=== PATIENT | female | born 1960 | race Caucasian/White ===

== ENCOUNTER 2016-12-01 11:22 | Emergency (ER) | payer BC ==
[2016-12-01] MEDS ORDERED: Metoprolol Tartrate IV* 1 MG/ML 5 ML VIAL IV ONE (11:33)
[2016-12-01] MEDS ORDERED: NS 0.9% 1000 ML* 2,000 ML IV ONE (11:33)
[2016-12-01 11:57] LABS: Hematocrit 40 % (35-47); Mean Corpuscular HGB Conc 35 g/dl (31-36); Mean Corpuscular Hemoglobin 33 pg (27-31); Mean Corpuscular Volume 95 fL (80-97); Mean Platelet Volume 9 um3 (7.4-10.4); Red Blood Count 4.25 10^6/ul (4.0-5.4); Red Cell Distribution Width 13 % (10.5-15); White Blood Count 5.3 10^3/ul (3.5-10.8)
[2016-12-01 12:13] LABS: ALT 33 U/L (7-52); Albumin 4.6 g/dL (3.2-5.2); Alkaline Phosphatase 96 U/L (34-104); BUN/Creatinine Ratio 12.9 (8-20); Blood Urea Nitrogen 13 mg/dL (6-24); CO2 Carbon Dioxide 21 mmol/L (22-32); Calcium 9.3 mg/dL (8.6-10.3); Chloride 103 mmol/L (101-111); Creatine Kinase 110 U/L (10-223); EGFR African American 73.5 (>60); EGFR Non-African American 57.1 (>60); Globulin 2.8 g/dL (2-4); Glucose 161 mg/dL (70-100); Lipase 50 U/L (11.0-82.0); Sodium 136 mmol/L (133-145); Total Protein 7.4 g/dL (6.4-8.9)
--- NOTE | 2016-12-01 12:30 | RAD ---
HISTORY: Tachycardia COMPARISONS: None VIEWS:1: Single frontal portable view of the chest at 12:06 PM FINDINGS: LINES AND TUBES: None. CARDIOMEDIASTINAL SILHOUETTE: The cardiomediastinal silhouette is normal for portable technique. PLEURA: The costophrenic angles are sharp. No pleural abnormalities are noted. LUNG PARENCHYMA: The lungs are clear. ABDOMEN: The upper abdomen is clear. There is no subphrenic gas. BONES AND SOFT TISSUES: No bone or soft tissue abnormalities are noted. IMPRESSION: NO ACTIVE CARDIOPULMONARY DISEASE.
[2016-12-01 12:38] LABS: Anion Gap 12 mmol/L (2-11)
[2016-12-01 12:51] LABS: TSH (Thyroid Stimulating Horm) 3.97 mcIU/mL (0.34-5.60)
[2016-12-01] MEDS ORDERED: Metoprolol Succinate XL TAB* 25 MG PO ONE (13:55)
[2016-12-01] MEDS ORDERED: Potassium Chlor TAB* 20 MEQ TAB.ER PO ONE (13:56)
[2016-12-01] MEDS ORDERED: Perflutren Lipid Microsphere* 3 ML VIAL ONE (14:31)
--- NOTE | 2016-12-01 15:49 | ECHO ---
Patient: ZULEIKA QUILES [facility] Rec#: [id number] : 1960 Date: 12/01/2016 Age: 56y Height: 180.34 cm / 71.0 in Weight: 104.33 kg / 229.9 lbs Sex: F BSA: 2.24 Room#: ED 18 Admit Date#: 12/01/2016 Type: Outpatient Referring: Nixon Erwin MD Reading: Jorge L Flores MD Inspector Quality Assurance: Sharlene Paniagua RDCS,RDMS CC: Devon Wright MD Transthoracic Echocardiogram Indication: Abnormal EKG, SVT BP: 124/68 HR: 67 Rhythm: NSR with PVCs Findings History: Previously healthy Technical Comments: The study quality is fair. Completed 1509 The study is technically limited due to poor apical windows. Left Ventricle: The left ventricular chamber size is normal. There is no left ventricular hypertrophy. The estimated ejection fraction is 55-60%. closer to 55%. There is no consistent Doppler evidence of clinically significant diastolic dysfunction. Left Atrium: The left atrium is mildly dilated. Right Ventricle: The right ventricular chamber size and systolic function are within normal limits. Right Atrium: The right atrium is slightly dilated. Aortic Valve: The aortic valve is trileaflet. There is no evidence of aortic valve thickening. Systolic excursion of the aortic valve is normal. There is no evidence of aortic regurgitation. There is no evidence of aortic stenosis. Mitral Valve: The mitral valve leaflets appear normal. There is a trace of mitral regurgitation. There is no evidence of mitral stenosis. Tricuspid Valve: The tricuspid valve leaflets are normal. There is trace to mild tricuspid regurgitation. No pulmonary hypertension is noted. Pulmonic Valve: There is no evidence of pulmonic valve thickening. There is mild pulmonic regurgitation. There is no pulmonic stenosis. Pericardium: There is no significant pericardial effusion. Aorta: The aortic root appears normal. There is no dilatation of the aortic arch. Pulmonary Artery: The main pulmonary artery appears normal. Venous: The inferior vena cava appears normal in size. There is an approximate 50% respiratory change in the inferior vena cava dimension. Contrast: Definity was used to optimize study. A total of 3 ml was used Summary: There was not any prior study for comparison. Conclusions The study quality is fair. Completed 1510 The estimated ejection fraction is 55-60%, closer to 55%. The left atrium is mildly dilated. There is a trace of mitral regurgitation. There is trace to mild tricuspid regurgitation. There is mild pulmonic regurgitation. Measurements Name Value Normal Range RVIDd (AP) 2D 2.4 cm (0.9 - 2.6) RVDdMajor (2D) 3.2 cm (2.2 - 4.4) RAd ISD 4CH 5.4 cm (3.4 - 4.9) RA (A4C)W 4.4 cm (2.9 - 4.6) IVSd (2D) 1 cm (0.6 - 1) LVPWd (2D) 1 cm (0.6 - 1) LVIDd (2D) 5.2 cm (3.6 - 5.4) LVIDs (2D) 3.9 cm - LV FS (2D) 26 % (25 - 45) Aortic Annulus 2 cm (1.4 - 2.6) Ao root diameter (2D) 2.7 cm (2.1 - 3.5) Ascending Ao 2.8 cm (2.1 - 3.4) Aortic arch 2.9 cm (1.8 - 3.4) LA dimension (AP) 2D 3.4 cm (2.3 - 3.8) LAd ISD 4CH 6.1 cm (2.9 - 5.3) LA ISD 4CH W 4.1 cm (2.5 - 4.5) Name Value Normal Range LA ESV SP 4CH (A/L) 83.58 ml - LA ESV SP 2CH (A/L) 53.93 ml - LA ESV BP (A/L) 73.59 ml - LA ESV BP (A/L) index 33 ml/m2 - LA ESV SP 4CH (MOD) 80.31 ml - LA ESV SP 2CH (MOD) 48.92 ml - Name Value Normal Range MV E-wave Vmax 0.7 m/sec - MV deceleration time 151 msec - MV A-wave Vmax 0.7 m/sec - MV E:A ratio 1 ratio - P. vein S-wave Vmax 0.5 m/sec - P. vein D-wave Vmax 0.3 m/sec - P. vein S:D Vmax ratio 1.4 ratio - P. vein A-wave duration 121 msec - LV septal e' Vmax 0.06 m/sec - LV lateral e' Vmax 0.08 m/sec - LV E:e' septal ratio 12 ratio - LV E:e' lateral ratio 9 ratio - Name Value Normal Range AV Vmax 1.3 m/sec - AV VTI 30.2 cm - AV peak gradient 7 mmHg - AV mean gradient 4.3 mmHg - LVOT Vmax 0.9 m/sec - LVOT VTI 19.8 cm - LVOT peak gradient 3.2 mmHg - LVOT mean gradient 1.6 mmHg - BRETT Vmax 1 m/sec - Name Value Normal Range TR Vmax 2.2 m/sec - TR peak gradient 19 mmHg - RAP 3 mmHg - RVSP 21 mmHg - IVC diameter 2.1 cm - Name Value Normal Range PV Vmax 0.8 m/sec - PV peak gradient 2.6 mmHg -
[2016-12-01 16:48] VITALS: BP 135/84
--- NOTE | 2016-12-01 16:57 | ED ---
Aristeo Fajardo Benjamin, scribed for Nixon Erwin MD on 12/01/16 at 1156 . HPI Chest Pain - HPI Summary HPI Summary: 56yo female comes in to ED for chest tightness, SOB, and tachycardia. Pt reports having intermittent chest tightness, SOB, and lightheadedness on and off for two or three times in the last couple of months, but todays onset lasted much longer, which prompted her to come to ED. - History of Current Complaint Chief Complaint: EDChestPainROMI Time Seen by Provider: 12/01/16 11:28 Hx Obtained From: Patient Onset/Duration: Started Hours Ago, Still Present Timing: Intermittent Initial Severity: Mild Current Severity: Mild Pain Intensity: 0 Chest Pain Location: Diffuse Chest Pain Radiates: No Chest Pain Radiates To:: Back Character: Tightness Aggravating Factor(s): Nothing Alleviating Factor(s): Nothing Associated Signs and Symptoms: Positive: Chest Pain, Shortness of Breath, Lightheadedness, Palpitations - racing heart - Allergy/Home Medications Allergies/Adverse Reactions: Allergies Allergy/AdvReac Type Severity Reaction Status Date / Time Amoxicillin Allergy Rash Verified 12/01/16 11:24 PMH/Surg Hx/FS Hx/Imm Hx Endocrine/Hematology History: Denies: Hx Thyroid Disease Cardiovascular History: Denies: Hx Hypertension - Cancer History Hx Chemotherapy: No Hx Radiation Therapy: No - Surgical History Surgery Procedure, Year, and Place: [place] Infectious Disease History: No Infectious Disease History: Denies: Traveled Outside the [place] in Last 30 Days - Family History Known Family History: Positive: Other - negative for breast CA - Social History Occupation: Employed Full-time Lives: With Family Alcohol Use: Occasionally Hx Substance Use: No Substance Use Type: Reports: None Hx Tobacco Use: No Smoking Status (MU): Never Smoked Tobacco Review of Systems Constitutional: Negative Eyes: Negative ENT: Negative Positive: Palpitations, Chest Pain Positive: Shortness Of Breath Gastrointestinal: Negative Genitourinary: Negative Musculoskeletal: Negative Skin: Negative Neurological: Other - lightheadedness Psychological: Normal All Other Systems Reviewed And Are Negative: Yes Physical Exam Triage Information Reviewed: Yes Vital Signs On Initial Exam: Initial Vitals Temp Pulse Resp BP Pulse Ox 97.6 F 172 17 157/114 95 12/01/16 11:28 12/01/16 11:28 12/01/16 11:28 12/01/16 11:28 12/01/16 11:28 Vital Signs Reviewed: Yes Appearance: Positive: Well-Appearing, No Pain Distress, Well-Nourished Skin: Positive: Warm, Skin Color Reflects Adequate Perfusion, Dry Head/Face: Positive: Normal Head/Face Inspection Eyes: Positive: Normal ENT: Positive: Normal ENT inspection Neck: Positive: Supple, Nontender Respiratory/Lung Sounds: Positive: Clear to Auscultation, Breath Sounds Present Cardiovascular: Positive: Tachycardia Abdomen Description: Positive: Nontender, Soft Bowel Sounds: Positive: Present Musculoskeletal: Positive: Normal, Strength/ROM Intact. Negative: Edema Left, Edema Right Neurological: Positive: Sensory/Motor Intact, Alert, Oriented to Person Place, Time, CN Intact II-III Psychiatric: Positive: Affect/Mood Appropriate Diagnostics - Vital Signs Vital Signs Temp Pulse Resp BP Pulse Ox 12/01/16 11:28 97.6 F 172 17 157/114 95 - Laboratory Lab Results: Lab Results 12/01/16 12/01/16 12/01/16 Range/Units 11:46 11:46 11:46 WBC 5.3 (3.5-10.8) 10^3/ul RBC 4.25 (4.0-5.4) 10^6/ul Hgb 14.0 (12.0-16.0) g/dl Hct 40 (35-47) % MCV 95 (80-97) fL MCH 33 H (27-31) pg MCHC 35 (31-36) g/dl RDW 13 (10.5-15) % Plt Count 161 (150-450) 10^3/ul MPV 9 (7.4-10.4) um3 Neut % (Auto) 68.0 (38-83) % Lymph % (Auto) 24.0 L (25-47) % [place] % (Auto) 5.5 (1-9) % Eos % (Auto) 0.9 (0-6) % Baso % (Auto) 1.6 (0-2) % Absolute Neuts (auto) 3.6 (1.5-7.7) 10^3/ul Absolute Lymphs (auto) 1.3 (1.0-4.8) 10^3/ul Absolute Monos (auto) 0.3 (0-0.8) 10^3/ul Absolute Eos (auto) 0 (0-0.6) 10^3/ul Absolute Basos (auto) 0.1 (0-0.2) 10^3/ul Absolute Nucleated RBC 0 10^3/ul Nucleated RBC % 0.1 INR (Anticoag Therapy) 0.82 L (0.89-1.11) APTT 28.1 (26.0-36.3) seconds D-Dimer, Quantitative < 200 (Less Than 230) ng/mL Sodium 136 (133-145) mmol/L Potassium TNP Chloride 103 (101-111) mmol/L Carbon Dioxide 21 L (22-32) mmol/L Anion Gap 12 H (2-11) mmol/L BUN 13 (6-24) mg/dL Creatinine 1.01 H (0.51-0.95) mg/dL Est GFR ( Amer) 73.5 (>60) Est GFR (Non-Af Amer) 57.1 (>60) BUN/Creatinine Ratio 12.9 (8-20) Glucose 161 H (70-100) mg/dL Lactic Acid (0.5-2.0) mmol/L Calcium 9.3 (8.6-10.3) mg/dL Magnesium TNP Total Bilirubin 0.60 (0.2-1.0) mg/dL AST TNP ALT 33 (7-52) U/L Alkaline Phosphatase 96 (34-104) U/L Total Creatine Kinase 110 (10-223) U/L CK-MB (CK-2) 3.7 (0.6-6.3) ng/mL Troponin I 0.00 (<0.04) ng/mL C-Reactive Protein 5.80 H (< 5.00) mg/L B-Natriuretic Peptide ( - 100) pg/mL Total Protein 7.4 (6.4-8.9) g/dL Albumin 4.6 (3.2-5.2) g/dL Globulin 2.8 (2-4) g/dL Albumin/Globulin Ratio 1.6 (1-3) Lipase 50 (11.0-82.0) U/L TSH 3.97 (0.34-5.60) mcIU/mL 12/01/16 12/01/16 12/01/16 Range/Units 11:46 11:46 12:54 WBC (3.5-10.8) 10^3/ul RBC (4.0-5.4) 10^6/ul Hgb (12.0-16.0) g/dl Hct (35-47) % MCV (80-97) fL MCH (27-31) pg MCHC (31-36) g/dl RDW (10.5-15) % Plt Count (150-450) 10^3/ul MPV (7.4-10.4) um3 Neut % (Auto) (38-83) % Lymph % (Auto) (25-47) % [place] % (Auto) (1-9) % Eos % (Auto) (0-6) % Baso % (Auto) (0-2) % Absolute Neuts (auto) (1.5-7.7) 10^3/ul Absolute Lymphs (auto) (1.0-4.8) 10^3/ul Absolute Monos (auto) (0-0.8) 10^3/ul Absolute Eos (auto) (0-0.6) 10^3/ul Absolute Basos (auto) (0-0.2) 10^3/ul Absolute Nucleated RBC 10^3/ul Nucleated RBC % INR (Anticoag Therapy) (0.89-1.11) APTT (26.0-36.3) seconds D-Dimer, Quantitative (Less Than 230) ng/mL Sodium (133-145) mmol/L Potassium 3.9 Chloride (101-111) mmol/L Carbon Dioxide (22-32) mmol/L Anion Gap (2-11) mmol/L BUN (6-24) mg/dL Creatinine (0.51-0.95) mg/dL Est GFR ( Amer) (>60) Est GFR (Non-Af Amer) (>60) BUN/Creatinine Ratio (8-20) Glucose (70-100) mg/dL Lactic Acid 2.7 H* (0.5-2.0) mmol/L Calcium (8.6-10.3) mg/dL Magnesium 2.0 Total Bilirubin (0.2-1.0) mg/dL AST 28 ALT (7-52) U/L Alkaline Phosphatase (34-104) U/L Total Creatine Kinase (10-223) U/L CK-MB (CK-2) (0.6-6.3) ng/mL Troponin I (<0.04) ng/mL C-Reactive Protein (< 5.00) mg/L B-Natriuretic Peptide 138 H ( - 100) pg/mL Total Protein (6.4-8.9) g/dL Albumin (3.2-5.2) g/dL Globulin (2-4) g/dL Albumin/Globulin Ratio (1-3) Lipase (11.0-82.0) U/L TSH (0.34-5.60) mcIU/mL 12/01/16 12/01/16 Range/Units 15:34 15:34 WBC (3.5-10.8) 10^3/ul RBC (4.0-5.4) 10^6/ul Hgb (12.0-16.0) g/dl Hct (35-47) % MCV (80-97) fL MCH (27-31) pg MCHC (31-36) g/dl RDW (10.5-15) % Plt Count (150-450) 10^3/ul MPV (7.4-10.4) um3 Neut % (Auto) (38-83) % Lymph % (Auto) (25-47) % [place] % (Auto) (1-9) % Eos % (Auto) (0-6) % Baso % (Auto) (0-2) % Absolute Neuts (auto) (1.5-7.7) 10^3/ul Absolute Lymphs (auto) (1.0-4.8) 10^3/ul Absolute Monos (auto) (0-0.8) 10^3/ul Absolute Eos (auto) (0-0.6) 10^3/ul Absolute Basos (auto) (0-0.2) 10^3/ul Absolute Nucleated RBC 10^3/ul Nucleated RBC % INR (Anticoag Therapy) (0.89-1.11) APTT (26.0-36.3) seconds D-Dimer, Quantitative (Less Than 230) ng/mL Sodium (133-145) mmol/L Potassium Chloride (101-111) mmol/L Carbon Dioxide (22-32) mmol/L Anion Gap (2-11) mmol/L BUN (6-24) mg/dL Creatinine (0.51-0.95) mg/dL Est GFR ( Amer) (>60) Est GFR (Non-Af Amer) (>60) BUN/Creatinine Ratio (8-20) Glucose (70-100) mg/dL Lactic Acid 1.4 (0.5-2.0) mmol/L Calcium (8.6-10.3) mg/dL Magnesium Total Bilirubin (0.2-1.0) mg/dL AST ALT (7-52) U/L Alkaline Phosphatase (34-104) U/L Total Creatine Kinase (10-223) U/L CK-MB (CK-2) (0.6-6.3) ng/mL Troponin I 0.03 (<0.04) ng/mL C-Reactive Protein (< 5.00) mg/L B-Natriuretic Peptide ( - 100) pg/mL Total Protein (6.4-8.9) g/dL Albumin (3.2-5.2) g/dL Globulin (2-4) g/dL Albumin/Globulin Ratio (1-3) Lipase (11.0-82.0) U/L TSH (0.34-5.60) mcIU/mL Result Diagrams: 12/01/16 11:46 12/01/16 12:54 Lab Statement: Any lab studies that have been ordered have been reviewed, and results considered in the medical decision making process. - Radiology CXR Xray Interpretation: No Acute Changes Radiology Interpretation Completed By: Radiologist - EKG 1128. Cardiac Rate: Tachycardia - 136bpm EKG Rhythm: Sinus Tachycardia ST Segment: Normal Ectopy: None EKG Interpretation: Depressed T waves in lateral leads 1127. Cardiac Rate: Tachycardia - 172bpm EKG Rhythm: SVT EKG Interpretation: diffuse ST depression 1534. Cardiac Rate: NL - 65bpm EKG Rhythm: Sinus Rhythm Ectopy: PVCs EKG Interpretation: Inverted T waves in anterior leads - Additional Comments Diagnostic Additional Comments: TRANSTHORASIC ECHOCARDIOGRAM BY DR. FLORES: Conclusions The study quality is fair. Completed 1509 The estimated ejection fraction is 55-60%, closer to 55%. The left atrium is mildly dilated. There is a trace of mitral regurgitation. There is trace to mild tricuspid regurgitation. There is mild pulmonic regurgitation. Re-Evaluation - Re-Evaluation First Eval Re-Evaluation Time: 13:40 Comment: Discussed lab and imaging results with the pt, as well as pt's course of treatment. Pt will stay for Echocardiogram, repeat trop, and EKG. Second Eval Re-Evaluation Time: 16:07 Comment: Discussed echocardiogram, repeat trop, and EKG. with the pt, as well as pt's course of treatment and disposition. Chest Pain Course/Dx - Course Course Of Treatment: Reviewed pts medication and allergy lists. Discussed with Dr. Flores (Cardiology) at 11:34. Discussed with Dr. Flores (Cardiology) at 15:58, Dr. Flores reports normal Echocardiogram. Discussed with Dr. Flores ( Cardiology) at 16:19. AFTER SVT RETURNED TO NSR; NO CHEST PAIN/SOB, PATIENT FEELS WELL. DISCUSSED WITH DR FLORES; ECHO WNL, RECHECK TROPONIN < 0.04. REVIEWED EKGS WITH DR FLORES. PATIENT FEELS WELL IN ED. STARTED TOPRAL XL 25MG PO QD. F/U WITH DR FLORES WITHIN ONE WEEK. RETURN IF WORSE. - Diagnoses Provider Diagnoses: SVT (supraventricular tachycardia) Discharge - Discharge Plan Condition: Stable Disposition: HOME Prescriptions: Metoprolol Succinate XL TAB* [Toprol XL TAB*] 25 mg PO DAILY #30 tab.xl Patient Education Materials: Supraventricular Tachycardia (ED) Referrals: Jorge L Flores MD [Medical Doctor] - Devon Wright MD [Primary Care Provider] - Additional Instructions: FOLLOW UP WITH YOUR DOCTOR. CALL DR FLORES'S OFFICE (CARDIOLOGY) TOMORROW FOR A FOLLOW UP VISIT WITH HIM NEXT WEEK. RETURN TO THE EMERGENCY DEPARTMENT FOR ANY WORSENING OF YOUR CONDITION; CHEST PAIN, SHORTNESS OF BREATH, YOU FEEL ILL OR QUESTIONS OR CONCERNS. The documentation as recorded by the Aristeo quispe Benjamin accurately reflects the service I personally performed and the decisions made by me, Nixon Erwin MD.
== END 2016-12-01 16:49 | disposition home or self-care (01) ==
LOC: ED 11:22
DX: I47.1 Supraventricular tachycardia (principal); R07.9 Chest pain, unspecified; R06.02 Shortness of breath; R42 Dizziness and giddiness; R00.2 Palpitations
CPT/HCPCS: 36415; 71010; 80053; 82550; 82553; 83605; 83690; 83735; 83880; 84443; 84484; 85025; 85379; 85610; 85730; 86140; 93005; 93306; 96374; 99283; A9270-GY; C8929